=== PATIENT | female | born 1970 | race Two or more races ===

== ENCOUNTER 2024-12-03 08:55 | Emergency (ER) | payer OTHER, MEDICAID, SELFPAY ==
[2024-12-03 09:08] VITALS: BP 124/81; PULSE 75; RESP 16; TEMP 36.9; O2SAT 97; BMI 27.6
--- NOTE | 2024-12-03 09:19 | PD.EDRME ---
Rapid Medical Screening Exam E Arrival date/time: 12/03/24 08:55 54-year-old female with no known medical history presents to the emergency room with a chief complaint of sore throat, difficulty swallowing, difficulty breathing, and pain when opening her mouth. Patient states she was placed on antibiotics for throat infection but she is unable to swallow the medication. Patient states this has been going on for the last 5 days. I have greeted and performed a focused initial assessment of this patient. A comprehensive ED assessment and evaluation of the patient, analysis of all test results, and completion of the medical decision making process will be conducted by additional ED providers. Chief Complaint: Dental/Oral/Throat Time Seen by Provider: 12/03/24 09:00 Vital signs: Vital Signs Temperature 98.5 F 12/03/24 09:08 Pulse Rate 75 12/03/24 09:08 Respiratory Rate 16 12/03/24 09:08 Blood Pressure 124/81 12/03/24 09:08 Pulse Oximetry (%) 97 12/03/24 09:08 Oxygen Delivery Method Room Air 12/03/24 09:08 Vital signs reviewed by provider: Yes
[2024-12-03 09:51] LABS: Basophils % (Auto) 0 % (0-2.5); Eosinophils % (Auto) 0 % (0-10); Hematocrit 42.3 % (36.0-46.0); Hemoglobin 14.2 g/dL (12.0-16.0); Immature Granulocytes % (Auto) 1 % (0-0); Immature Granulocytes Auto 0.05 Thou/mm3 (0.00-0.00); Lymphocytes # (Auto) 2.7 Thou/mm3 (1.0-4.8); Lymphocytes % (Auto) 25 % (10-50); Mean Corpuscular HGB Conc 33.6 g/dl (31.0-37.0); Mean Corpuscular Volume 89 fL (80-100); Monocytes # (Auto) 0.8 Thou/mm3 (0.0-0.8); Monocytes % (Auto) 8 % (0-12); Neutrophils % (Auto) 66 % (37-80); Nucleated Red Blood Cell % 0 /100 WBC (0); Platelet Count 317 Thou/mm3 (140-440); Red Blood Count 4.74 Miln/mm3 (4.00-5.20); White Blood Count 10.6 Thou/mm3 (3.6-11.0)
--- NOTE | 2024-12-03 10:03 | PD.EDADDENDU ---
Emergency Room Addendum Addendum Narrative: I was asked to evaluate this patient who has trismus and difficulty opening her mouth. Went down to the [facility] area where I talked the patient with nurse practitioner. Patient clearly has a sore throat is having pain with swallowing but is able to hold swallow some pills and liquids. Clinical exam the patient is alert awake answering questions appropriately she has no drooling she has no dysphonia. Examination of her oral cavity took 2 tongue blades to push her tongue down but the posterior pharynx is well-visualized and her uvula is normal midline. There is no peritonsillar abscess. Her neck is very supple there is no adenopathy in the anterior cervical chain. There is some adenopathy in the left submandibular area. Patient clearly has a pharyngitis with a odyna-phasia with no clinical peritonsillar abscess. We had a long discussion and encourage oral antibiotics despite the pain and switch to liquid if need be and 1 dose of IV antibiotics like clindamycin. Nurse practitioner will continue care. There is no clinical reason to do a CT at this time.
[2024-12-03 10:07] LABS: Strep A Rapid Negative (Negative)
[2024-12-03 10:09] LABS: Alanine Aminotransferase 13 U/L (10-49); Albumin, Serum 4.6 gm/dL (3.5-5.0); Albumin/Globulin Ratio 1.6 (1.2-2.2); Alkaline Phosphatase 93 U/L (46-116); Anion Gap 9 (7-16); Aspartate Amino Transferase 11 U/L (0-34); BUN/Creatinine Ratio 21 Ratio (12-20); Bilirubin,Total 0.9 mg/dL (0.3-1.2); Blood Urea Nitrogen 15 mg/dL (9-23); Calcium 9.4 mg/dL (8.3-10.6); Calcium (Corrected) 9.4 mg/dL (8.5-10.1); Carbon Dioxide 27.4 mMol/L (20.0-31.0); Chloride 106 mMol/L (98-107); Creatinine (Component) 0.7 mg/dL (0.6-1.3); Estimated Creatinine Clearance 80.1 mL/min (>60); Globulin 2.9 gm/dL (2.3-3.5); Glucose 103 mg/dL (74-106); Osmolality,Calculated 283 (275-295); Sodium 142 mMol/L (136-145); Total Protein 7.5 gm/dL (5.7-8.2); eGFR > 60 See Note
[2024-12-03] MEDS: KETOROLAC INJ 30 MG/ML VIAL IVP (10:16)
--- NOTE | 2024-12-03 10:43 | EDNOTE_ITS ---
ED Dental RME/HPI General Chief complaint: Dental/Oral/Throat Stated complaint: Sore throat X 1 week Time Seen by Provider: 12/03/24 09:00 Source: patient Arrival date/time: 12/03/24 08:55 54-year-old female with no known medical history presents to the emergency room with a chief complaint of sore throat, difficulty swallowing, difficulty breathing, and pain when opening her mouth. Patient states she was placed on antibiotics for throat infection but she is unable to swallow the medication. Patient states this has been going on for the last 5 days. Mode of arrival: ambulatory Limitations: no limitations RME / HPI RME / HPI Narrative: 12/03/24 08:55 54-year-old female with no known medical history presents to the emergency room with a chief complaint of sore throat, difficulty swallowing, difficulty breathing, and pain when opening her mouth. Patient states she was placed on antibiotics for throat infection but she is unable to swallow the medication. Patient states this has been going on for the last 5 days. I have greeted and performed a focused initial assessment of this patient. A comprehensive ED assessment and evaluation of the patient, analysis of all test results, and completion of the medical decision making process will be conducted by additional ED providers. Related Data Allergies Allergy/AdvReac Type Severity Reaction Status Date / Time No Known Allergies Allergy Verified 12/03/24 08:59 Review of Systems Review of Systems Systems Reviewed: All systems reviewed, normal except as documented Constitutional Constitutional: Reports system reviewed and no additional complaints, except as documented, Denies fatigue, Denies fever(s), Denies headache(s) and Denies weakness Eyes Eyes: Reports system reviewed and no additional complaints, except as documented, Denies blurry vision and Denies change in vision ENT Ears, Nose, Mouth, and Throat: Reports system reviewed and no additional complaints, except as documented, Denies otalgia, Denies headache(s), Denies nasal congestion, Reports sore throat, Denies throat swelling and Denies vertigo Cardiovascular Cardiovascular: Reports system reviewed and no additional complaints, except as documented, Denies chest pain, Denies dyspnea and Denies dyspnea on exertion Respiratory Respiratory: Reports system reviewed and no additional complaints, except as documented, Denies chest congestion, Denies cough, Denies dyspnea, Denies dyspnea on exertion and Denies wheezing Gastrointestinal Gastrointestinal: Reports system reviewed and no additional complaints, except as documented, Denies abdominal pain, Denies cramping, Denies nausea and Denies vomiting Genitourinary Genitourinary: Reports system reviewed and no additional complaints, except as documented Musculoskeletal Musculoskeletal: Reports system reviewed and no additional complaints, except as documented and Denies back pain Integumentary/Breasts Skin/Breast: Reports system reviewed and no additional complaints, except as documented and Denies wounds Neurologic Neurologic: Reports system reviewed and no additional complaints, except as documented, Denies confusion, Denies headache(s), Denies lack of coordination, Denies vertigo and Denies weakness Psychiatric Psychiatric: Reports system reviewed and no additional complaints, except as documented, Denies anxiety, Denies confusion, Denies depression, Denies paranoia, Denies suicidal ideation and Denies tactile hallucinations Endocrine Endocrine: Reports system reviewed and no additional complaints, except as documented and Denies fatigue Hematologic/Lymphatic Hematologic/Lymphatic: Reports system reviewed and no additional complaints, except as documented and Denies lymphadenopathy Allergic/Immunologic Allergic/Immunologic: Reports system reviewed and no additional complaints, except as documented, Denies throat swelling, Denies urticaria and Denies wheezing ED Exam General Limitations: Present no limitations General appearance: Present alert and in no apparent distress Head Head exam: Present atraumatic Eye Eye exam: Present normal appearance, PERRL and EOMI ENT ENT exam: Present normal exam, normal oropharynx and mucous membranes moist Expanded ENT Exam Mouth exam: Present trismus Throat exam: Present tonsillar erythema and tonsillar exudate Neck Neck exam: Present normal inspection, full ROM and trachea midline Chest Chest inspection: Present normal inspection and symmetric chest wall rise Respiratory Respiratory exam: Present normal lung sounds bilaterally Cardiovascular Cardiovascular exam: Present regular rate, normal rhythm and normal heart sounds Abdominal Exam Abdominal exam: Present soft and normal bowel sounds Extremities Exam Extremities exam: Present normal inspection and full ROM Back Exam Back exam: Present normal inspection and full ROM Neurological Exam Neurological exam: Present alert, oriented X3 and CN II-XII intact Psychiatric Psychiatric exam: Present normal affect and normal mood Skin Skin exam: Present warm, dry, intact and normal color Course Quality Measures none Orders Category Date Time Status CT Screening NOW Care 12/03/24 09:18 Completed CBC Stat Lab 12/03/24 09:25 Completed CMP [Comprehensive Metabolic Panel] Stat Lab 12/03/24 09:25 Completed [place] Screen Stat Lab 12/03/24 09:25 Received Strep A Rapid Stat Lab 12/03/24 09:23 Completed Clindamycin 900Mg Ivpb [Cleocin/D5w Ivpb] 50 ml Med 12/03/24 10:06 Discontinued IV X1 Ketorolac Inj [Toradol Inj] Med 12/03/24 10:05 Discontinued 30 mg IVP X1 ONE Vital Signs Vital signs: Vital Signs Temperature 98.5 F 12/03/24 09:08 Pulse Rate 75 12/03/24 09:08 Respiratory Rate 16 12/03/24 09:08 Blood Pressure 124/81 12/03/24 09:08 Pulse Oximetry (%) 97 12/03/24 09:08 Oxygen Delivery Method Room Air 12/03/24 09:08 O2 saturation 97% within normal limits Dental / Oral MDM Narrative MDM Narrative:: 54-year-old female with no known medical history presents to the emergency room with a chief complaint of sore throat, difficulty swallowing, difficulty breathing, and pain when opening her mouth. Patient states she was placed on antibiotics for throat infection but she is unable to swallow the medication. Patient states this has been going on for the last 5 days. Patient is hemodynamically stable. She is afebrile nontachycardic nontachypneic and O2 saturation is 97% on room air ENT examination shows a erythemic posterior pharynx with tonsillar exudates to the right pillar. The uvula is midline. There is no signs of any peritonsillar abscess. The patient has minor trismus when opening her mouth. Patient is on oral Augmentin as well as clindamycin that was prescribed by her primary care provider. Patient states she has not been taking her oral antibiotics routinely because it hurts when she swallows them. Patient was given IV antibiotics as well as pain medication. Patient was educated on the importance of taking her oral antibiotics routinely and states that she will begin to take them. Patient was discharged and educated to follow-up with her primary care provider and return to the emergency room for any evidence of worsening signs or symptoms Patient data External records reviewed:: [facility] previous records Clinical information provided by:: patient Social determinants that could affect healthcare access:: none Patient has the following chronic illnesses:: No chronic illness How is presenting disease/condition affected by chronic disease/condition?: no chronic disease Evaluation data The following diagnostics were reviewed and interpreted by me:: lab results and radiology exam(s) Lab and/or radiology exams considered but not ordered:: Labs and radiology exams considered and ordered Interpretation Summary: N/A Medications / Prescriptions Medications or Prescriptions considered but not ordered:: Medication given Medication administrations:: Medication Administration History Discontinued Medications Clindamycin Phosphate (Cleocin/D5w Ivpb) 50 mls @ 100 mls/hr IV X1 ONE Stop: 12/03/24 10:35 Last Infusion: 12/03/24 12:00 Dose: Infused Documented By: Admin: 12/03/24 10:48 Dose: 100 mls/hr Documented By: BD Ketorolac Tromethamine (Ketorolac Inj 30 Mg/Ml Vial) 30 mg IVP X1 ONE Stop: 12/03/24 10:06 Last Admin: 12/03/24 10:16 Dose: 30 mg Documented By: BD Medication given Consultations Consultation(s) initiated? (list below): No Diagnosis Dental Differential Diagnosis: other (Pharyngitis/mononucleosis/peritonsillar abscess) Most likely diagnosis given after review of the tests above:: Pharyngitis Admission Indicated Admission indicated?: not indicated Admission Request Was there a request for admission?: No Disposition Plan Disposition Plan: Discharge Discharge Attestation Discharge Attestation: The patient and all family members were given an opportunity to ask questions and understood the discharge instructions. Discharge instructions specifically effects, indications for sooner follow up or return to the emergency department, and the expected course of current diagnosis. Patient condition: Stable Discharge Plan Plan Patient Disposition: HOME (Self Care) Disposition Comment: Stable Prescriptions/Referrals Referrals: No Primary/Family,Physician [Primary Care Provider] - In 1 week Problem List Clinical Impression: Pharyngitis Patient/Caregiver Discharge Instructions Education Materials: When You Have a Sore Throat, Self-Care for Sore Throats Additional Instructions: Please follow-up with your primary care provider in the next 24 to 48 hours. Please continue to take the antibiotics that were prescribed by your primary care provider. IV antibiotics were given to you during your stay but it is very important that you continue to take your oral antibiotics For any evidence of worsening signs or symptoms return to the emergency room immediately Print Language: Nepalese Stand Alone Forms: Amber Award Info., Patient Portal Info Letter PA/SCOT Supervising Physician ZORAN/SCOT Supervising Physician: Dr. Harrison
[2024-12-03] MEDS: CLINDAMYCIN 900MG IVPB 50 ML 100 MG IV (10:48)
[2024-12-03 16:59] LABS: Mono Screen Negative (Negative)
== END 2024-12-03 12:28 | disposition home or self-care (01) ==
PROVIDERS: Nurse Practitioner Family; Emergency Provider Emergency Medicine
DX: J02.9 Acute pharyngitis, unspecified (principal)
CPT/HCPCS: 36415; 80053; 85025; 86308; 87651; 96365; 96375; 99284; J1885; S0077; J0736